=== PATIENT | female | born 1955 | race Two or more races ===

== ENCOUNTER 2022-04-05 07:37 | Outpatient (CLI) | payer OTHER ==
[~2022-04-05 07:37] MED LIST: CALAN80 MG PO; CARDIZEM30 MG PO; CYTOMEL25 MCG PO; HYZAAR 50/12.51 TAB PO; MOTRIN800 MG PO; NEURONTIN600 MG PO; PREDNISONE2.5 MG PO; RESTORIL15 MG PO; SINGULAIR10 MG PO; SYNTHROID75 MCG PO; TESSALON200 MG PO; TRAMADOL HCL-AP1 TAB PO; ZOCOR40 MG PO; [UNRECOGNIZED DRUG - OTHER]
== END 2022-04-05 07:47 | disposition home or self-care (01) ==
LOC: SONOGRAMA 07:37
DX: K76.0 Fatty (change of) liver, not elsewhere classified (principal); R74.01 Elevation of levels of liver transaminase levels; R74.02 Elevation of levels of lactic acid dehydrogenase [LDH]

== ENCOUNTER 2022-04-05 08:31 | Outpatient (CLI) | payer OTHER | END 2022-04-05 08:38 | disposition home or self-care (01) | LOC: NUCLEAR 08:31 | PROVIDERS: ATTEND Family Medicine | DX: M81.0 Age-related osteoporosis without current pathological fracture (principal); Z88.0 Allergy status to penicillin; Z88.1 Allergy status to other antibiotic agents; Z91.048 Other nonmedicinal substance allergy status ==

== ENCOUNTER 2024-07-01 09:36 | Outpatient (CLI) | payer OTHER | END 2024-07-01 09:42 | disposition home or self-care (01) | LOC: NUCLEAR 09:36 | DX: R60.0 Localized edema (principal); M81.0 Age-related osteoporosis without current pathological fracture ==